=== PATIENT | male | born 2005 | race Asian ===

== ENCOUNTER 2023-12-05 11:39 | Emergency (ER) | payer BC ==
[~2023-12-05] VITALS: Ht 167.6 cm; Wt 70.8 kg
[2023-12-05 13:32] VITALS: BP 137/58; PULSE 88; RESP 18; TEMP 97.8; O2SAT 99
== END 2023-12-05 13:48 | disposition home or self-care (01) ==
LOC: EDH 11:39
DX: F90.9 Attention-deficit hyperactivity disorder, unspecified type (principal); Z76.0 Encounter for issue of repeat prescription; F41.9 Anxiety disorder, unspecified; F32.A Depression, unspecified; R45.851 Suicidal ideations
CPT/HCPCS: 99281